=== PATIENT | female | born 1955 | race Caucasian/White ===

== ENCOUNTER 2016-04-22 17:25 | Emergency (ER) | payer BC ==
[~2016-04-22 17:25] MED LIST: Sodium Chloride 0.9% 1,000 ML BAG ONE
[2016-04-22 18:33] LABS: Bilirubin Negative (Negative); Blood, Urine Negative (Negative); Clarity Clear (Clear); Glucose, Urine (Dipstick) Negative (Negative); Leukocyte Negative (Negative); Nitrite Negative (Negative); Protein, Urine (Dipstick) 30 mg/dL (Neg-Trace); Urobilinogen 0.2 mg/dL (0.2-1.0)
[2016-04-22] MEDS ORDERED: Ondansetron HCl/PF 4 MG/2 ML Vial ONE (18:34)
[2016-04-22 19:06] LABS: #Basophils 0.1 thou/uL (0.0-0.2); #Eosinphils 0.1 thou/uL (0.0-0.7); #Monocytes 0.7 thou/uL (0.11-0.59); #Neutrophils 4.5 thou/uL (1.40-6.50); %Basophils 1.1 % (0.0-1.0); %Eosinophils 1.2 % (0.0-10.0); %Lymphocytes 42.2 % (21.0-51.0); %Monocytes 7.1 % (0.0-10.0); %Neutrophils 48.4 % (42.0-75.0); Hemoglobin 15.9 g/dL (12.0-16.0); Mean Corpuscular HGB CONC 33.9 g/dL (32.0-36.0); Mean Corpuscular Hemoglobin 31.5 pg (27.0-31.0); Mean Corpuscular Volume 92.9 fl (81.0-99.0); Mean Platelet Volume 7.5 fL (7.4-10.4); Platelet Count 314 thou/uL (130-400); Red Blood Cell (RBC) Count 5.05 mill/uL (4.20-5.40); White Blood Cell (WBC) Count 9.4 thou/uL (4.8-10.8)
[2016-04-22 19:18] LABS: Specific Gravity, Urine 1.022 (1.002-1.036)
[2016-04-22 19:19] LABS: RBC/HPF None Seen HPF (0-3); Squamous Epithelial 0-3 HPF (0-3); WBC/HPF None Seen HPF (0-3)
[2016-04-22 19:27] LABS: ALT (SGPT) 11 U/L (0-55); AST (SGOT) 19 U/L (5-34); Albumin 4.1 g/dL (3.5-5.0); Alkaline Phosphatase 71 U/L (40-150); Anion Gap 16 mmol/L (10-20); BUN (Urea Nitrogen) 9 mg/dL (9.8-20.1); Bilirubin, Total 0.3 mg/dL (0.2-1.2); Calc. Creatinine Clearance 0 mL/min (70-130); Calcium 8.8 mg/dL (7.8-10.44); Carbon Dioxide 23 mmol/L (22-29); Chloride 105 mmol/L (98-107); Estimated GFR-MDRD 88; Globulin 2.5 g/dL (2.4-3.5); Glucose 95 mg/dL (70-105); Lipase 19 U/L (8-78); Potassium 4.5 mmol/L (3.5-5.1); Protein, Total 6.6 g/dL (6.0-8.3); Sodium 139 mmol/L (136-145)
[2016-04-22 21:19] LABS: POC Occult Blood Neg QC Acceptable (Acceptable); POC Occult Blood Pos QC Acceptable (Acceptable)
== END 2016-04-22 20:10 | disposition home or self-care (01) ==
LOC: MADERS 17:25
DX: E86.0 Dehydration (principal); J44.9 Chronic obstructive pulmonary disease, unspecified; F17.210 Nicotine dependence, cigarettes, uncomplicated; Z79.899 Other long term (current) drug therapy
CPT/HCPCS: 36415; 80053; 81003; 81015; 83690; 85025; 87324; 87449; 96361; 96374; J2405; J7050

== ENCOUNTER 2016-09-29 07:19 | Emergency (ER) | payer BC ==
[2016-09-29] MEDS ORDERED: Sodium Chloride 0.9% 1,000 ML BAG ONE (07:35)
[2016-09-29] MEDS ORDERED: Nitroglycerin 0.4 MG TAB 1 EACH ONE ×2 (07:35→08:08)
[2016-09-29] MEDS ORDERED: diphenhydrAMINE HCl 25 MG CAP ONE (07:38)
[2016-09-29] MEDS ORDERED: predniSONE 20 MG TAB ONE (07:38)
[2016-09-29] MEDS ORDERED: EPINEPHrine 1 MG/ML AMP ONE (07:38)
[2016-09-29] MEDS ORDERED: Aspirin 325 MG TAB ONE (08:08)
[2016-09-29 08:34] LABS: ALT (SGPT) 10 U/L (8-55); AST (SGOT) 15 U/L (5-34); Albumin 3.8 g/dL (3.4-4.8); Alkaline Phosphatase 66 U/L (40-150); Anion Gap 13 mmol/L (10-20); BUN (Urea Nitrogen) 11 mg/dL (9.8-20.1); Bilirubin, Total 0.7 mg/dL (0.2-1.2); Calc. Creatinine Clearance 0 mL/min (70-130); Calcium 9.2 mg/dL (7.8-10.44); Carbon Dioxide 26 mmol/L (23-31); Chloride 103 mmol/L (98-107); Estimated GFR-MDRD 76; Globulin 2.3 g/dL (2.4-3.5); Glucose 109 mg/dL (80-115); Potassium 3.5 mmol/L (3.5-5.1); Protein, Total 6.1 g/dL (6.0-8.3); Sodium 138 mmol/L (136-145)
[2016-09-29 08:39] LABS: CKMB 0.6 ng/mL (0-6.6); Troponin I Less than 0.010 ng/mL (< 0.028)
--- NOTE | 2016-09-29 08:45 | RAD ---
RADIOGRAPH CHEST 2 VIEWS: HISTORY: 61-year-old female with acute chest pain. FINDINGS: There is hyperinflation of the lungs, consistent with COPD. There is no evidence of air space densi ty, pneumothorax, or pulmonary edema. There is no cardiomegaly or pleural effusion. IMPRESSION: 1) No acute cardiopulmonary findings. 2) Emphysema. mark POS: [facility]
[2016-09-29] MEDS ORDERED: Potassium Chloride 20 MEQ TAB ONE (08:59)
[2016-09-29] MEDS ORDERED: diphenhydrAMINE HCl 50 MG/ML 1 ML VIAL ONE (08:59)
[2016-09-29 09:01] LABS: Hemoglobin 17.1 g/dL (12.0-16.0); Mean Corpuscular HGB CONC 33.9 g/dL (32.0-36.0); Mean Corpuscular Hemoglobin 32.9 pg (27.0-31.0); Mean Corpuscular Volume 97.1 fl (81.0-99.0); Mean Platelet Volume 7.2 fL (7.4-10.4); Platelet Count 295 thou/uL (130-400); RBC Distribution Width 12.3 % (11.5-14.5); Red Blood Cell (RBC) Count 5.21 mill/uL (4.20-5.40)
[2016-09-29 09:03] LABS: MDiff Complete? YES; Manual Diff?? YES
[2016-09-29 09:04] LABS: Anisocytosis SLIGHT = 6-15 cells (100X) (0-5/hpf); Band 2 % (5-11); Neutrophil 63 % (42-75); Reactive Lymphocytes 2 % (0-10)
[2016-09-29 09:05] LABS: Lymphocytes 28 % (21-51); Monocytes 5 % (0-10); PLT Morphology Comment Appears Adequate
[2016-09-29 09:29] LABS: Clarity Clear (Clear); Specific Gravity, Urine 1.012 (1.002-1.036)
[2016-09-29 09:30] LABS: Bacteria/HPF Rare-Few HPF (None Seen); Bilirubin Negative (Negative); Blood, Urine Negative (Negative); Glucose, Urine (Dipstick) Negative (Negative); Leukocyte Trace (Negative); Nitrite Negative (Negative); Protein, Urine (Dipstick) Negative (Neg-Trace); RBC/HPF 0-3 HPF (0-3); Squamous Epithelial 0-3 HPF (0-3); Urobilinogen 0.2 mg/dL (0.2-1.0)
--- NOTE | 2016-09-29 10:31 | CT ---
CTA CHEST WITH CONTRAST: Date: 09/29/16 HISTORY: Elevated D-Dimer. Chest pain. COMPARISON: Chest 1 view from same date. TECHNIQUE: CT angiogram of the chest performed after the intravenous administration of contrast. 3D rendering p rovided. FINDINGS: No segment pulmonary arterial filling defect. Pulmonary trunk size measures 25.0 mm. Heart size is normal. No pericardial effusion. The ascending aorta measures up to 38.0 mm. Mild thickening of the distal thoracic esophagus. There is a wedge-shaped area of hypoperfusion of t he superior cortex of the right kidney. There are numerous scattered pulmonary nodules in the anterior segment left lower lobe, as well as t he right middle lobe. There is a nodular density right lung apex. Largest nodule in the right middle lobe measures approximately 4.0 mm. Largest nodule in the left lower extremity, anterior segment, series 3, image 74, measures just unde r 6.0 mm. IMPRESSION: 1. No segmental pulmonary arterial filling defect. 2. Mild thickening distal thoracic esophagus. Recommend follow-up with endoscopy. 3. 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 4. Numerous scattered pulmonary nodules, largest measuring just under 6.0 mm anterior segment left lower lobe. Follow-up CT in 6 months recommended. Metastatic disease cannot be excluded. POS: [facility]INA
[2016-09-29] MEDS ORDERED: Iopamidol 370 76% 125 ML VIAL FS ONE (10:32)
== END 2016-09-29 10:31 | disposition left against medical advice (07) ==
LOC: MADERS 07:19
DX: L50.9 Urticaria, unspecified (principal); R07.9 Chest pain, unspecified; J43.9 Emphysema, unspecified; K21.9 Gastro-esophageal reflux disease without esophagitis; F32.9 Major depressive disorder, single episode, unspecified; F41.9 Anxiety disorder, unspecified; F17.210 Nicotine dependence, cigarettes, uncomplicated; Z86.73 Personal history of transient ischemic attack (TIA), and cerebral infarction without residual deficits; Z79.899 Other long term (current) drug therapy
CPT/HCPCS: 71010; 71275; 80053; 81003; 81015; 82553; 83605; 84484; 85025; 85379; 87040; 93005; 96361; 96372; 96374; J0171; J1200; J7050; J7506

== ENCOUNTER 2021-04-20 14:34 | Emergency (ER) | payer MEDICARE, BC ==
[2021-04-20] MEDS ORDERED: predniSONE 10 MG TAB ONE (15:21)
[2021-04-20] MEDS ORDERED: predniSONE 20 MG TAB ONE (15:21)
[2021-04-20] MEDS ORDERED: Orphenadrine Citrate 60 MG/2 ML VIAL ONE (15:21)
[2021-04-20] MEDS ORDERED: predniSONE 20 MG TAB PO SCH (15:30)
[2021-04-20] MEDS ORDERED: Orphenadrine Citrate 60 MG/2 ML VIAL IM SCH (15:30)
[2021-04-20] MEDS ORDERED: Azithromycin 250 MG TAB ONE (15:37)
== END 2021-04-20 15:52 | disposition home or self-care (01) ==
LOC: MADERS 14:34
DX: J10.1 Influenza due to other identified influenza virus with other respiratory manifestations (principal); J44.9 Chronic obstructive pulmonary disease, unspecified; K21.9 Gastro-esophageal reflux disease without esophagitis; F17.210 Nicotine dependence, cigarettes, uncomplicated; Z86.73 Personal history of transient ischemic attack (TIA), and cerebral infarction without residual deficits; Z79.899 Other long term (current) drug therapy
CPT/HCPCS: 71045; 72100; 96372; J2360; J7512; J7620

== ENCOUNTER 2022-02-17 10:29 | Emergency (ER) | payer MEDICARE, BC | END 2022-02-17 11:08 | disposition home or self-care (01) | LOC: MADERS 10:29 | DX: J01.00 Acute maxillary sinusitis, unspecified (principal); J01.10 Acute frontal sinusitis, unspecified; J44.9 Chronic obstructive pulmonary disease, unspecified; K21.9 Gastro-esophageal reflux disease without esophagitis; F17.210 Nicotine dependence, cigarettes, uncomplicated; Z79.899 Other long term (current) drug therapy | CPT/HCPCS: 99283 ==

== ENCOUNTER 2022-03-13 10:19 | Emergency (ER) | payer BC, MEDICARE | END 2022-03-13 11:40 | disposition home or self-care (01) | LOC: MADERS 10:19 | DX: J42 Unspecified chronic bronchitis (principal); K21.9 Gastro-esophageal reflux disease without esophagitis; F17.210 Nicotine dependence, cigarettes, uncomplicated; Z79.899 Other long term (current) drug therapy | CPT/HCPCS: 71046 ==

== ENCOUNTER 2022-06-11 17:54 | Emergency (ER) | payer MEDICARE | END 2022-06-11 18:50 | disposition home or self-care (01) | LOC: MADERS 17:54 | DX: M96.831 Postprocedural hemorrhage of a musculoskeletal structure following other procedure (principal); K21.9 Gastro-esophageal reflux disease without esophagitis; J44.9 Chronic obstructive pulmonary disease, unspecified; F17.210 Nicotine dependence, cigarettes, uncomplicated; Z79.899 Other long term (current) drug therapy | CPT/HCPCS: 99283 ==

== ENCOUNTER 2023-11-04 09:49 | Emergency (ER) | payer MEDICARE ==
[2023-11-04] MEDS ORDERED: Dicyclomine 20 MG/2 ML VIAL ONE (10:25)
[2023-11-04] MEDS ORDERED: Sodium Chloride 0.9% 1,000 ML ONE (10:25)
[2023-11-04 11:09] LABS: Bilirubin Negative (Negative); Blood, Urine Negative (Negative); Clarity Clear (Clear); Glucose, Urine (Dipstick) Negative (Negative); Ketone, Urine Negative (Negative); Leukocyte Negative (Negative); Nitrite Negative (Negative); Protein, Urine (Dipstick) Negative (Neg-Trace); Specific Gravity, Urine 1.015 (1.005-1.030); Urobilinogen 0.2 mg/dL (Less than 2); pH, Urine 6.5 (5.0-9.0)
[2023-11-04 11:19] LABS: Hematocrit 49.1 % (36.0-47.0); Hemoglobin 15.5 g/dL (12.0-16.0); Mean Corpuscular HGB CONC 31.7 g/dL (32.0-36.0); Mean Corpuscular Hemoglobin 29.8 pg (27.0-31.0); Mean Corpuscular Volume 94.1 fl (78.0-98.0); Mean Platelet Volume 8.2 fL (7.4-10.4); Platelet Count 268 10x3/uL (130-400); RBC Distribution Width 13.6 % (11.5-14.5); Red Blood Cell (RBC) Count 5.21 mill/uL (4.20-5.40); White Blood Cell (WBC) Count 8.4 10x3/uL (4.8-10.8)
[2023-11-04 11:24] LABS: Lymphocytes 45 % (21-51); MDiff Complete? YES; Manual Diff?? YES; Neutrophil 35 % (42-75)
[2023-11-04 11:25] LABS: Eosinophils 2 % (0-10); Monocytes 6 % (0-10); Reactive Lymphocytes 12 % (0-10)
[2023-11-04 11:27] LABS: Platelet Adequacy Comment Appears Adequate; RBC Morph Comment Within Normal Limits
[2023-11-04 11:28] LABS: SARS-CoV-2 E Target Positive; SARS-CoV-2 N2 Target Positive; SARS-CoV-2 NAA Rapid Test DETECTED (NotDetected); SARS-CoV-2 RdRP gene Positive
[2023-11-04 11:29] LABS: Bacteria/HPF Rare-Few HPF (None Seen); CAUTI Indications for Culture Alt mental st,lethar; RBC/HPF 0-3 HPF (0-3); Urine Culture Reflex No No; WBC/HPF 0-3 HPF (0-3)
[2023-11-04 11:29] LABS: ALT (SGPT) 8 U/L (8-55); AST (SGOT) 14 U/L (5-34); Albumin 3.3 g/dL (3.4-4.8); Alkaline Phosphatase 79 U/L (40-110); Anion Gap 16 mmol/L (10-20); BUN (Urea Nitrogen) 9 mg/dL (9.8-20.1); Bilirubin, Total 0.3 mg/dL (0.2-1.2); Calc. Creatinine Clearance 0 mL/min (70-130); Calcium 9.4 mg/dL (7.8-10.44); Carbon Dioxide 22 mmol/L (23-31); Chloride 106 mmol/L (98-107); Estimated GFR 84; Globulin 4.7 g/dL (2.4-3.5); Glucose 85 mg/dL (80-115); Magnesium 1.8 mg/dL (1.6-2.6); Potassium 4.2 mmol/L (3.5-5.1); Sodium 140 mmol/L (136-145)
[2023-11-04] MEDS ORDERED: Dexamethasone 10 MG/ML VIAL ONE (12:30)
== END 2023-11-04 13:02 | disposition home or self-care (01) ==
LOC: MADERS 09:49
DX: U07.1 COVID-19 (principal); R19.7 Diarrhea, unspecified; E86.0 Dehydration; F17.210 Nicotine dependence, cigarettes, uncomplicated
CPT/HCPCS: 71046; 80053; 81001; 83605; 83735; 85025; 87804 ×2; J1100; J7030; U0002; 96372; 96374

== ENCOUNTER 2024-01-06 11:25 | Emergency (ER) | payer MEDICARE ==
[2024-01-06] MEDS ORDERED: HYDROcodone/Acetaminophen 10/325 mg Tablet ONE (12:19)
== END 2024-01-06 14:17 | disposition home or self-care (01) ==
LOC: MADERS 11:25
DX: S92.314A Nondisplaced fracture of first metatarsal bone, right foot, initial encounter for closed fracture (principal); S92.334A Nondisplaced fracture of third metatarsal bone, right foot, initial encounter for closed fracture; S92.344A Nondisplaced fracture of fourth metatarsal bone, right foot, initial encounter for closed fracture; S92.244A Nondisplaced fracture of medial cuneiform of right foot, initial encounter for closed fracture; F17.210 Nicotine dependence, cigarettes, uncomplicated; W17.2XXA Fall into hole, initial encounter